=== PATIENT | female | born 1965 ===

== ENCOUNTER 2024-01-04 12:36 | Outpatient (CLI) | payer BC, SELFPAY ==
--- NOTE | ~2024-01-04 | MR_ITS ---
EXAMINATION: MR brain/brain stem wo/w con DATE: 01/04/2024 13:38 INDICATION: Headache. Right facial pain. Dizziness. Trigeminal pain. TECHNIQUE: Magnetic resonance imaging (MRI) of the brain and brainstem was performed without and with 20 mL MultiHance intravenous contrast. COMPARISON: None. FINDINGS: There is no intracranial hemorrhage, acute infarction, or abnormal intracranial mass lesion . There are scattered areas of nonspecific increased T2-weighted signal intensity in the cerebral whi te matter, which is within normal limits for the patient's age. The ventricles are normal in size. Th e trigeminal nerves are normal. The paranasal sinuses are clear. The orbits are normal. The mastoid a ir cells are normal. The internal auditory canals and inner ears and tympanic cavities are normal. IMPRESSION: 1. Normal brain. Normal trigeminal nerves. No vascular loop compression. Reviewed, dictated and finalized at location A.
== END 2024-01-04 12:37 ==
DX: G44.099 Other trigeminal autonomic cephalgias (TAC), not intractable (principal)
CPT/HCPCS: 70553; A9577